=== PATIENT | male | born 1980 | race Caucasian/White ===

== ENCOUNTER 2016-05-06 10:21 | Emergency (ER) | payer SELFPAY ==
--- NOTE | 2016-05-06 13:25 | ED NURSING NOTES ---
Clinical Report - Nurses [facility] [address] [place] [address] 05/06/2016 10:25 Patient: KALEY FRANK IV TRIAGE Triage time 10:43. Chief Complaint: ABDOMINAL PAIN, NAUSEA and VOMITING and (Started yesterday after eating at [employer].). --10:54 Violeta Connolly R.N. Triage time 11:00 May 06 2016. Acuity: LEVEL 3. Chief Complaint: ABDOMINAL PAIN and DIARRHEA. SUZETTE COMA SCORE: [place] Coma Scale: 15- eyes open spontaneously (4); best verbal response- oriented x 4 (5); best motor response- obeys commands (6). --11:23 Carloz Gonzalez R.N. 11:13 05/06/16. BP: 106/85. HR: 100. RR: 18. O2 saturation: 99%. Temp: 98.2 F. Pain level now 12/04. --11:23 Carloz Gonzalez R.N. Weight: 97.5 kg stated. Height/Length: 75 inches Per Patient. BMI: 26.9. --11:21 Carloz Gonzalez R.N. Medications Humira Pen Subcutaneous. --11:19 Carloz Gonzalez R.N. METHATREXATE. --11:20 Carloz Gonzalez R.N. Hydrocodone-Acetaminophen Oral. --11:20 Carloz Gonzalez R.N. Medication/allergy information source: the patient. --10:54 Violeta Connolly R.N. Allergies morphine. --11:19 Carloz Gonzalez R.N. History Arrived by private vehicle. Historian: patient. Primary physician (judie Allen's specialist). This started yesterday. He has had nausea. He has had vomiting (forched self to vomit.). ( Patient reluctant and very slow in answering triage questions. I asked the patient to let me get his blood pressure and the rest of the vs. Patient loudly stated, "I want someone else to talk to". "Maybe, I'll just leave". Patient took off gown and started to get up, throwing the gown on the bed. PATRICK Carty walked in and took over the care of the patient.). Treatment ENGINE SPECIALIST: None. --10:54 Violeta Connolly R.N. Arrived by private vehicle. Historian: patient. Accompanied by friend. This started yesterday. He has had diarrhea and abdominal pain. No nausea, vomiting, constipation or fever. Last oral intake by patient was yesterday. PAST MEDICAL HX: No history of diabetes mellitus. No history of gastroesophageal reflux disease, peptic ulcer disease or gallstones. Immunizations: up-to-date. SOCIAL HX: Never smoker. Alcohol use; consumes two beers a week. No drug use. No recent travel. No infectious disease exposure. No known contact with a sick individual. SELF HARM ASSESSMENT: A self harm assessment was performed. The patient answered "no" to the question "Have you recently felt down, depressed, or hopeless?" and "Do you have thoughts of harming or killing yourself?". FALL RISK ASSESSMENT: Fall risk assessment completed. No fall risk identified. NUTRITIONAL RISK ASSESSMENT: The nutritional risk assessment revealed no deficiencies. FUNCTIONAL ASSESSMENT: Functional assessment: no impairments noted. LEARNING NEEDS ASSESSMENT: The learning needs assessment revealed no barriers. ABUSE ASSESSMENT: Abuse assessment: (yes) The patient was asked "Do you feel safe in your home?". SKIN INTEGRITY ASSESSMENT: Skin integrity risk assessment completed. No skin integrity risk identified. --11:23 Carloz Gonzalez R.N. PROBLEMS: Chron's . --10:46 Violeta Connolly R.N. ADDITIONAL SURGERIES: Bowel Surgery. Iliostomy . --10:46 Violeta Connolly R.N. Interventions ID and allergy band on patient. --11:23 Carloz Gonzalez R.N. PHYSICAL ASSESSMENT Ambulatory to room. ( States muscles are jasmin and it is very painful.). GENERAL / NEURO / PSYCH: Alert. Oriented X 4. Appears in pain, anxious and in distress. HEENT: Mucous membranes are pink. RESPIRATORY: Respirations not labored. Breath sounds within normal limits. CVS: Normal sinus rhythm noted. Capillary refill less than 2 seconds. GI / : The patient has diarrhea. No nausea noted. Normal genitalia. SKIN: Skin is warm and dry. --11:24 Carloz Gonzalez R.N. NURSING PROGRESS NOTES The plan of care for this patient has been created. Pulse oximeter and NIBP monitor placed on patient. Patient gowned. Head of bed elevated (45). Reassurance given. Call light placed in reach. Side rails up x 1. Bed placed in lowest position. Brakes of bed on. --11:24 Carloz Gonzalez R.N. 11:10 05/06/2016 Site #1 started via IV in the right antecubital space with an 20g angiocath, with aseptic technique and good blood return; one attempt. Blood drawn: rainbow set and cultures x2. Labeled in the presence of the patient and sent to the lab. Saline lock flushed with 10 mL saline. --11:35 Carloz Gonzalez R.N. 11:35 05/06/2016 Started bag #1 1000 mL IV Fluids IV NS (Saline); at 1000 mL/hr over 1 hour(s) via site #1 --11:35 Carloz Gonzalez R.N. 12:18 05/06/2016 IV Fluids IV NS Discontinued: bag #1 infused. Total amount infused: 1000 mL. IV patency established. IV site checked: no pain, redness, or swelling. IV flushed thoroughly. --12:18 Carloz Gonzalez R.N. 13:18 05/06/2016 Site #1 removed upon discharge. Catheter intact. Pressure dressing applied. --13:18 Amy Thornton. DISPOSITION / DISCHARGE Departure time: 13:45 May 06 2016. Condition at departure: improved. No learning barriers present. Discharge instructions provided and reviewed with the patient. Reviewed warnings. Reviewed medication(s). Treatments reviewed. Reviewed referrals. Patient verbalized understanding. Written instructions provided in Namibian. The patient was discharged home and accompanied by cork insulator. He left the Emergency Department ambulatory and via private vehicle. Break And Load Operator driving. --13:55 Carloz Gonzalez R.N. 13:54 05/06/16. BP: 105/78. HR: 100. RR: 18. O2 saturation: 98%. Temp: 98.4 F. Pain level now 0/10. --13:55 Carloz Gonzalez R.N. Locked/Released at 05/06/2016 19:19 by Carloz Gonzalez R.N.
--- NOTE | 2016-05-06 13:25 | ED ORDER SUMMARY ---
..... Patient: KALEY FRANK IV OrderSheet [facility] VisitID: [id number] [place] [address] 35y, M Registration Date/Time: 05/06/2016 ORDER SHEET Weight: 97.5 kg (stated) Allergies: morphine GENERAL ORDERS: CBC w Diff Urgent (:05/06/2016 Lcuien Navarro) (Ack 11:40 LTapper) (12:19 LWhalen R.N.) CMP Urgent (:05/06/2016 Lucien Navarro) (Ack 11:40 LTapper) (12:19 LWhalen R.N.) Amylase Urgent (:05/06/2016 Lucien Navarro) (Ack 11:40 LTapper) (12:19 LWhalen R.N.) Lipase Urgent (:05/06/2016 Lucien Navarro) (Ack 11:40 LTapper) (12:19 LWhalen R.N.) UA-Culture if indicated Urgent (:05/06/2016 Lucien Navarro) (Ack 11:40 LTapper) (12:19 LWhalen R.N.) CPK Urgent (:05/06/2016 Lucien Navarro) (Ack 11:40 LTapper) (12:19 LWhalen R.N.) MEDICATION ORDERS: IV FLUIDS: IV NS : initial bolus none -, then 1000 mL/hr for X1 (NOW) (:05/06/2016 Lucien Navarro) (11:35 LWhalen R.N.) ORDER SHEET NOTES: [Electronically signed by Carloz Gonzalez R.N. (19:19 05/06/2016)] [Electronically signed by Bert Donaldson Dr. (21:56 05/06/2016)] [Electronically locked/signed by Carloz Gonzalez R.N. (19:19 05/06/2016)]
--- NOTE | 2016-05-06 13:25 | ED CLINICAL REPORT ---
Clinical Report - Physicians/Mid Levels [facility] [address] [place] [address] 05/06/2016 10:25 Patient: KALEY FRANK IV Time Seen: 10:45; initial patient contact. Arrived- By private vehicle. Historian- patient. HISTORY OF PRESENT ILLNESS Chief Complaint: ABDOMINAL PAIN. At its maximum, severity described as moderate. When seen in the E.D., severity described as moderate. Modifying factors. Not worsened by anything. Not relieved by anything. It is described as cramping. No radiation. It is described as generalized in location. This started today and is still present. The patient has had nausea, vomiting and diarrhea. No recent travel. Similar symptoms previously: None. Recent medical care: Not recently seen/assessed. REVIEW OF SYSTEMS No constipation, black stools, hematemesis, pain with urination or urinary frequency. No bloody stools, fever or chills. muscle cramps. All systems otherwise negative, except as recorded above. PAST HISTORY Chron's . ADDITIONAL SURGERIES: Bowel Surgery. Iliostomy . SOCIAL HISTORY Never smoker. Occasional alcohol use. No drug use. ADDITIONAL NOTES The nursing notes have been reviewed with agreement regarding the chief complaint, PMH and patient medications and allergies. PHYSICAL EXAM Vital Signs: 05/06/2016 11:13 BP: 106/85. HR: 100. RR: 18. O2 saturation: 99%. Temp: 98.2 F. Have been reviewed as normal. Appearance: Alert. Oriented X3. Appears to be in pain. Eyes: Eyes normal inspection. ENT: Dry mucous membranes present. CVS: Normal heart rate and rhythm. Heart sounds normal. Respiratory: No respiratory distress. Breath sounds normal. Abdomen: Soft and nontender. Bowel sounds normal. (Nl appearing ileostomy). Skin: Skin warm and dry. Normal skin color. No rash. Extremities: No calf tenderness. No lower extremity edema. Neuro: Oriented X 3. LABS, X-RAYS, AND EKG Laboratory Tests: CBC w Diff: (JESSENIA: 05/06/2016 11:00) ( MsgRcvd 05/06/2016 11:41) Final results Test Result Flag Units (Reference) WHITE BLOOD COUNT 12.2 H K/uL (4.5-11.5) RED BLOOD COUNT 5.90 M/uL (4.50-5.90) HEMOGLOBIN 18.7 H gm/dL (13.5-17.5) HEMATOCRIT 54.6 H % (41.0-53.0) MEAN CELL VOLUME 93 fL (80-100) MEAN CORPUSCULAR HGB 32 pg (26-34) MEAN CORPUSCULAR HGB CONC 34 g/dL (31-37) RED CELL DISTRIBUTION WIDTH 12.6 % (11.6-14.8) PLATELET COUNT 307 K/uL (150-400) NEUTROPHIL % 70.7 % (50-75) LYMPH % 17.4 L % (25-40) MONO % 9.7 % (3-14) EOSINOPHIL % 1.7 % (0-4) BASOPHIL % 0.5 % (0-2) CMP: (JESSENIA: 05/06/2016 11:00) ( MsgRcvd 05/06/2016 12:10) Final results Test Result Flag Units (Reference) GLUCOSE 102 mg/dL (70-110) BUN 26 H mg/dL (7-18) CREATININE 1.8 H mg/dL (0.6-1.3) Estimated GFR 45.35 mL/min Estimated GFR- 54.96 mL/min Note: Persistent reduction over 3 months in eGFR<60 mL/min/1.73 m2 defines CKD. Patients with eGFR values>=60 mL/min/1.73 m2 may also have CKD if evidence ofpersistent proteinuria. Additional information may be foundat www.kidney.org. SODIUM 132 L mmol/L (136-145) POTASSIUM 4.5 mmol/L (3.5-5.1) CHLORIDE 95 L mmol/L (98-107) CARBON DIOXIDE 21 mmol/L (21-32) CALCIUM 10.2 H mg/dL (8.5-10.1) TOTAL PROTEIN 10.5 H g/dL (6.4-8.2) ALBUMIN 5.5 H g/dL (3.3-5.0) BILIRUBIN, TOTAL 5.1 H mg/dL (0.0-1.0) ALKALINE PHOSPHATASE 96 U/L (46-116) AST (SGOT) 43 H U/L (15-37) ALT (SGPT) 70 U/L (12-78) LIPASE 159 U/L (73-393) AMYLASE 63 U/L (25-115) CPK 315 H U/L (24-260) CK-MB 2.2 ng/mL (0.5-3.2) %CKMB 0.7 % (0.0-4.0) . PROGRESS AND PROCEDURES Course of Care: 13:17 05/06/16. Pt feeling markedly better after 1 L NS. Offered a 2nd liter, pt requesting D/C. Disposition: Discharged home in good and improved condition. Condition: good. CLINICAL IMPRESSION Myalgias Moderate dehydration Acute renal insufficiency. Acute viral gastroenteritis. INSTRUCTIONS Drink plenty of fluids. Your Current Medications: CONTINUE TAKING THE FOLLOWING MEDICATIONS: Humira Pen Subcutaneous. Hydrocodone-Acetaminophen Oral. METHATREXATE*. Follow-up: Screening today revealed the patient's blood pressure to be in the normal range. Follow-up with: [facility], , , [address], , [place], [id number] Follow up in about three days. Call for an appointment. (Electronically signed by Bert Donaldson Dr. 05/06/2016 21:56)
--- NOTE | 2016-05-06 13:25 | ED ORDER SUMMARY ---
..... Patient: KALEY FRANK IV OrderSheet VisitID: [id number] [place] [address] 35y, M Registration Date/Time: 05/06/2016 ORDER SHEET Weight: 97.5 kg (stated) Allergies: morphine GENERAL ORDERS: CBC w Diff Urgent (:05/06/2016 Lucien Navarro) (Ack 11:40 LTapper) (12:19 LWhalen R.N.) CMP Urgent (:05/06/2016 Lucien Navarro) (Ack 11:40 LTapper) (12:19 LWhalen R.N.) Amylase Urgent (:05/06/2016 Lucien Navarro) (Ack 11:40 LTapper) (12:19 LWhalen R.N.) Lipase Urgent (:05/06/2016 Lucien Navarro) (Ack 11:40 LTapper) (12:19 LWhalen R.N.) UA-Culture if indicated Urgent (:05/06/2016 Lucien Navarro) (Ack 11:40 LTapper) (12:19 LWhalen R.N.) CPK Urgent (:05/06/2016 Lucien Navarro) (Ack 11:40 LTapper) (12:19 LWhalen R.N.) MEDICATION ORDERS: IV FLUIDS: IV NS : initial bolus none -, then 1000 mL/hr for X1 (NOW) (:05/06/2016 Lucien Navarro) (11:35 LWhalen R.N.) ORDER SHEET NOTES: [Electronically signed by Carloz Gonzalez R.N. (19:19 05/06/2016)] [Electronically signed by Bert Donaldson Dr. (21:56 05/06/2016)] [Electronically locked/signed by Carloz Gonzalez R.N. (19:19 05/06/2016)]
--- NOTE | 2016-05-06 13:25 | ED NURSING NOTES ---
Clinical Report - Nurses [facility] [address] [place] [address] 05/06/2016 10:25 Patient: KALEY FRANK IV TRIAGE Triage time 10:43. Chief Complaint: ABDOMINAL PAIN, NAUSEA and VOMITING and (Started yesterday after eating at [employer].). --10:54 Violeta Connolly R.N. Triage time 11:00 May 06 2016. Acuity: LEVEL 3. Chief Complaint: ABDOMINAL PAIN and DIARRHEA. SUZETTE COMA SCORE: [place] Coma Scale: 15- eyes open spontaneously (4); best verbal response- oriented x 4 (5); best motor response- obeys commands (6). --11:23 Carloz Gonzalez R.N. 11:13 05/06/16. BP: 106/85. HR: 100. RR: 18. O2 saturation: 99%. Temp: 98.2 F. Pain level now 12/04. --11:23 Carloz Gonzalez R.N. Weight: 97.5 kg stated. Height/Length: 75 inches Per Patient. BMI: 26.9. --11:21 Carloz Gonzalez R.N. Medications Humira Pen Subcutaneous. --11:19 Carloz Gonzalez R.N. METHATREXATE. --11:20 Carloz Gonzalez R.N. Hydrocodone-Acetaminophen Oral. --11:20 Carloz Gonzalez R.N. Medication/allergy information source: the patient. --10:54 Violeta Connolly R.N. Allergies morphine. --11:19 Carloz Gonzalez R.N. History Arrived by private vehicle. Historian: patient. Primary physician (judie Allen's specialist). This started yesterday. He has had nausea. He has had vomiting (forched self to vomit.). ( Patient reluctant and very slow in answering triage questions. I asked the patient to let me get his blood pressure and the rest of the vs. Patient loudly stated, "I want someone else to talk to". "Maybe, I'll just leave". Patient took off gown and started to get up, throwing the gown on the bed. PATRICK Carty walked in and took over the care of the patient.). Treatment PHARMACY SALES REPRESENTATIVE: None. --10:54 Violeta Connolly R.N. Arrived by private vehicle. Historian: patient. Accompanied by friend. This started yesterday. He has had diarrhea and abdominal pain. No nausea, vomiting, constipation or fever. Last oral intake by patient was yesterday. PAST MEDICAL HX: No history of diabetes mellitus. No history of gastroesophageal reflux disease, peptic ulcer disease or gallstones. Immunizations: up-to-date. SOCIAL HX: Never smoker. Alcohol use; consumes two beers a week. No drug use. No recent travel. No infectious disease exposure. No known contact with a sick individual. SELF HARM ASSESSMENT: A self harm assessment was performed. The patient answered "no" to the question "Have you recently felt down, depressed, or hopeless?" and "Do you have thoughts of harming or killing yourself?". FALL RISK ASSESSMENT: Fall risk assessment completed. No fall risk identified. NUTRITIONAL RISK ASSESSMENT: The nutritional risk assessment revealed no deficiencies. FUNCTIONAL ASSESSMENT: Functional assessment: no impairments noted. LEARNING NEEDS ASSESSMENT: The learning needs assessment revealed no barriers. ABUSE ASSESSMENT: Abuse assessment: (yes) The patient was asked "Do you feel safe in your home?". SKIN INTEGRITY ASSESSMENT: Skin integrity risk assessment completed. No skin integrity risk identified. --11:23 Carloz Gonzalez R.N. PROBLEMS: Chron's . --10:46 Violeta Connolly R.N. ADDITIONAL SURGERIES: Bowel Surgery. Iliostomy . --10:46 Violeta Connolly R.N. Interventions ID and allergy band on patient. --11:23 Carloz Gonzalez R.N. PHYSICAL ASSESSMENT Ambulatory to room. ( States muscles are jasmin and it is very painful.). GENERAL / NEURO / PSYCH: Alert. Oriented X 4. Appears in pain, anxious and in distress. HEENT: Mucous membranes are pink. RESPIRATORY: Respirations not labored. Breath sounds within normal limits. CVS: Normal sinus rhythm noted. Capillary refill less than 2 seconds. GI / : The patient has diarrhea. No nausea noted. Normal genitalia. SKIN: Skin is warm and dry. --11:24 Carloz Gonzalez R.N. NURSING PROGRESS NOTES The plan of care for this patient has been created. Pulse oximeter and NIBP monitor placed on patient. Patient gowned. Head of bed elevated (45). Reassurance given. Call light placed in reach. Side rails up x 1. Bed placed in lowest position. Brakes of bed on. --11:24 Carloz Gonzalez R.N. 11:10 05/06/2016 Site #1 started via IV in the right antecubital space with an 20g angiocath, with aseptic technique and good blood return; one attempt. Blood drawn: rainbow set and cultures x2. Labeled in the presence of the patient and sent to the lab. Saline lock flushed with 10 mL saline. --11:35 Carloz Gonzalez R.N. 11:35 05/06/2016 Started bag #1 1000 mL IV Fluids IV NS (Saline); at 1000 mL/hr over 1 hour(s) via site #1 --11:35 Carloz Gonzalez R.N. 12:18 05/06/2016 IV Fluids IV NS Discontinued: bag #1 infused. Total amount infused: 1000 mL. IV patency established. IV site checked: no pain, redness, or swelling. IV flushed thoroughly. --12:18 Carloz Gonzalez R.N. 13:18 05/06/2016 Site #1 removed upon discharge. Catheter intact. Pressure dressing applied. --13:18 Amy Thornton. DISPOSITION / DISCHARGE Departure time: 13:45 May 06 2016. Condition at departure: improved. No learning barriers present. Discharge instructions provided and reviewed with the patient. Reviewed warnings. Reviewed medication(s). Treatments reviewed. Reviewed referrals. Patient verbalized understanding. Written instructions provided in Guamanian. The patient was discharged home and accompanied by felled seam operator chainstitch. He left the Emergency Department ambulatory and via private vehicle. Data Governance Analyst driving. --13:55 Carloz Gonzalez R.N. 13:54 05/06/16. BP: 105/78. HR: 100. RR: 18. O2 saturation: 98%. Temp: 98.4 F. Pain level now 0/10. --13:55 Carloz Gonzalez R.N. Locked/Released at 05/06/2016 19:19 by Carloz Gonzalez R.N.
--- NOTE | 2016-05-06 13:25 | ED CLINICAL REPORT ---
Clinical Report - Physicians/Mid Levels [facility] [address] [place] [address] 05/06/2016 10:25 Patient: KALEY FRANK IV Time Seen: 10:45; initial patient contact. Arrived- By private vehicle. Historian- patient. HISTORY OF PRESENT ILLNESS Chief Complaint: ABDOMINAL PAIN. At its maximum, severity described as moderate. When seen in the E.D., severity described as moderate. Modifying factors. Not worsened by anything. Not relieved by anything. It is described as cramping. No radiation. It is described as generalized in location. This started today and is still present. The patient has had nausea, vomiting and diarrhea. No recent travel. Similar symptoms previously: None. Recent medical care: Not recently seen/assessed. REVIEW OF SYSTEMS No constipation, black stools, hematemesis, pain with urination or urinary frequency. No bloody stools, fever or chills. muscle cramps. All systems otherwise negative, except as recorded above. PAST HISTORY Chron's . ADDITIONAL SURGERIES: Bowel Surgery. Iliostomy . SOCIAL HISTORY Never smoker. Occasional alcohol use. No drug use. ADDITIONAL NOTES The nursing notes have been reviewed with agreement regarding the chief complaint, PMH and patient medications and allergies. PHYSICAL EXAM Vital Signs: 05/06/2016 11:13 BP: 106/85. HR: 100. RR: 18. O2 saturation: 99%. Temp: 98.2 F. Have been reviewed as normal. Appearance: Alert. Oriented X3. Appears to be in pain. Eyes: Eyes normal inspection. ENT: Dry mucous membranes present. CVS: Normal heart rate and rhythm. Heart sounds normal. Respiratory: No respiratory distress. Breath sounds normal. Abdomen: Soft and nontender. Bowel sounds normal. (Nl appearing ileostomy). Skin: Skin warm and dry. Normal skin color. No rash. Extremities: No calf tenderness. No lower extremity edema. Neuro: Oriented X 3. LABS, X-RAYS, AND EKG Laboratory Tests: CBC w Diff: (JESSENIA: 05/06/2016 11:00) ( MsgRcvd 05/06/2016 11:41) Final results Test Result Flag Units (Reference) WHITE BLOOD COUNT 12.2 H K/uL (4.5-11.5) RED BLOOD COUNT 5.90 M/uL (4.50-5.90) HEMOGLOBIN 18.7 H gm/dL (13.5-17.5) HEMATOCRIT 54.6 H % (41.0-53.0) MEAN CELL VOLUME 93 fL (80-100) MEAN CORPUSCULAR HGB 32 pg (26-34) MEAN CORPUSCULAR HGB CONC 34 g/dL (31-37) RED CELL DISTRIBUTION WIDTH 12.6 % (11.6-14.8) PLATELET COUNT 307 K/uL (150-400) NEUTROPHIL % 70.7 % (50-75) LYMPH % 17.4 L % (25-40) MONO % 9.7 % (3-14) EOSINOPHIL % 1.7 % (0-4) BASOPHIL % 0.5 % (0-2) CMP: (JESSENIA: 05/06/2016 11:00) ( MsgRcvd 05/06/2016 12:10) Final results Test Result Flag Units (Reference) GLUCOSE 102 mg/dL (70-110) BUN 26 H mg/dL (7-18) CREATININE 1.8 H mg/dL (0.6-1.3) Estimated GFR 45.35 mL/min Estimated GFR- 54.96 mL/min Note: Persistent reduction over 3 months in eGFR<60 mL/min/1.73 m2 defines CKD. Patients with eGFR values>=60 mL/min/1.73 m2 may also have CKD if evidence ofpersistent proteinuria. Additional information may be foundat www.kidney.org. SODIUM 132 L mmol/L (136-145) POTASSIUM 4.5 mmol/L (3.5-5.1) CHLORIDE 95 L mmol/L (98-107) CARBON DIOXIDE 21 mmol/L (21-32) CALCIUM 10.2 H mg/dL (8.5-10.1) TOTAL PROTEIN 10.5 H g/dL (6.4-8.2) ALBUMIN 5.5 H g/dL (3.3-5.0) BILIRUBIN, TOTAL 5.1 H mg/dL (0.0-1.0) ALKALINE PHOSPHATASE 96 U/L (46-116) AST (SGOT) 43 H U/L (15-37) ALT (SGPT) 70 U/L (12-78) LIPASE 159 U/L (73-393) AMYLASE 63 U/L (25-115) CPK 315 H U/L (24-260) CK-MB 2.2 ng/mL (0.5-3.2) %CKMB 0.7 % (0.0-4.0) . PROGRESS AND PROCEDURES Course of Care: 13:17 05/06/16. Pt feeling markedly better after 1 L NS. Offered a 2nd liter, pt requesting D/C. Disposition: Discharged home in good and improved condition. Condition: good. CLINICAL IMPRESSION Myalgias Moderate dehydration Acute renal insufficiency. Acute viral gastroenteritis. INSTRUCTIONS Drink plenty of fluids. Your Current Medications: CONTINUE TAKING THE FOLLOWING MEDICATIONS: Humira Pen Subcutaneous. Hydrocodone-Acetaminophen Oral. METHATREXATE*. Follow-up: Screening today revealed the patient's blood pressure to be in the normal range. Follow-up with: [facility], , , [address], , [place], [id number] Follow up in about three days. Call for an appointment. (Electronically signed by Bert Donaldson Dr. 05/06/2016 21:56)
--- NOTE | 2016-05-06 21:56 | ED MAR SUMMARY ---
..... Medication Administration Record [facility] [address] [place] [address] Patient: KALEY FRANK Visit ID: [id number] 35y, M Weight: 97.5 kg Height/Length: 75 in BMI: 26.9 ALLERGIES: morphine Start 11:35 05/06/2016 Carloz Gonzalez RAloN., Stop 12:18 05/06/2016 Carloz Gonzalez RAloN. Medication Administered: IV NS (SALINE), Dose: IV Fluids over 1 hour(s), Rate: 1000 mL/hr, Dispensed: 1000 mL bag, Site: #1 right AC. Medication Ordered: IV NS : initial bolus none -, then 1000 mL/hr for X1 (NOW).
--- NOTE | 2016-05-06 21:56 | ED MED RECONCILIATION SUMMARY ---
Patient: KALEY FRANK IV Medication Reconciliation Report [facility] VisitID: [id number] [address] [place] [address] 35y, M Registration Date/Time: 05/06/2016 Weight: 97.5 kg Height/Length: 75 in. BMI: 26.9 ALLERGIES: morphine The patient's Home Medications are listed below: CONTINUE TAKING THE FOLLOWING MEDICATIONS: Humira Pen Subcutaneous Hydrocodone-Acetaminophen Oral METHATREXATE The source(s) of the original Home Medication information: patient The following Medications were given to the patient in the Emergency Department: IV NS IV Fluids bolus 0, then 1000 mL/hr, administered: 05/06/2016 11:35:00 AM The following Medications were prescribed to the patient: None.
--- NOTE | 2016-05-06 21:56 | ED DISCHARGE INSTRUCTIONS ---
Patient: KALEY FRANK IV General Instructions [facility] VisitID: [id number] [address] [place] [address] 35y, M Registration Date/Time: 05/06/2016 Myalgias Moderate dehydration Acute renal insufficiency. Acute viral gastroenteritis. INSTRUCTIONS Drink plenty of fluids. Your Current Medications: CONTINUE TAKING THE FOLLOWING MEDICATIONS: Humira Pen Subcutaneous. Hydrocodone-Acetaminophen Oral. METHATREXATE*. Follow-up: Screening today revealed the patient's blood pressure to be in the normal range. Follow-up with: [facility], , , [address], , [place], [id number] Follow up in about three days. Call for an appointment. ADDITIONAL INFORMATION Viral Gastroenteritis (6Yr-Adult) Gastroenteritis is another name for thestomach flu.It is most often caused by a virus that affects the stomach and intestinal tract. Symptoms include stomach cramping and fever, vomiting and/or diarrhea, and can last from 2 to 7 days. The danger from repeated vomiting or diarrhea is dehydration. This is the loss of too much water and minerals from the body. When this occurs, body fluids must be replaced. Antibiotics are not effective for this illness, but simple home treatment will be helpful. Home Care If symptoms are severe, rest at home for the next 24 hours. Avoid tobacco, caffeine, and alcohol use, which can worsen symptoms. Acetaminophen (Tylenol) or ibuprofen (Motrin, Advil) may be usedfor fever or pain unless another medication was prescribed. NOTE: If you have chronic liver or kidney disease or ever had a stomach ulcer or GI bleeding, talk with your doctor before using these medicines. Aspirin should never be used in anyone under 18 years of age who is ill with a fever. It may cause severe liver damage. If medicines for diarrhea or vomiting were prescribed, be sure they are takenonly as directed. If vomiting, drink small amounts of clear fluids (such as water, sports drinks, clear sodas) at frequent intervals to prevent dehydration. Start with 1 to 2 tablespoons every 10 minutes. Once vomiting stops, follow these guidelines: During The First 12 To 24 Hours follow the diet below: Beverages: Sport drinks like Gatorade, soft drinks without caffeine; asia ann, mineral water (plain or flavored), decaffeinated tea and coffee. Soups: Clear broth, consomm and bouillon Desserts: Plain gelatin (Jell-O), Popsicles and fruit juice bars. During The Next 24 Hours you may add the following to the above: Hot cereal, plain toast, bread, rolls, crackers Plain noodles, rice, mashed potatoes, chicken noodle or rice soup Unsweetened canned fruit (avoid pineapple), bananas Limit fat intake to less than 15 grams per day by avoiding margarine, butter, oils, mayonnaise, sauces, gravies, fried foods, peanut butter, meat, poultry, and fish. Limit fiber; avoid raw or cooked vegetables, fresh fruits (except bananas), and bran cereals. Limit caffeine and chocolate. Do not use spices or seasonings except salt. During The Next 24 Hours The patient can gradually resume a normal diet as symptoms lessen. Preventing Spread Hand washing with soap and water is the best way to prevent the spread of viruses. Caregivers should wash their hands before andafter touching the sick person. The sick person, as well as everyone in the family,should wash their hands after using the toilet and before meals. Clean the toilet after each use. People with diarrhea should not prepare food for others. If you are preparing your own foods, wash your hands before and after. Follow Up with your doctor as advised. Call your doctor if you are not improving over the next 2 to 3 days. If a stool (diarrhea) sample was taken, you may call in 2 days (or as directed) for the results. Get Prompt Medical Attention if any of the following occur: Increasing abdominal pain Continued vomiting (unable to keep liquids down) Frequent diarrhea (more than 5 times a day) Blood in vomit or stool (black or red color) Dark urine, reduced urine output, or extreme thirst Weakness, dizziness, fainting Drowsiness, confusion, stiff neck, or seizure Fever of 100.4F (38C) oral or higher, not better with fever medication New rash Myalgias Myalgia is the term for muscle aching, sometimes described by patients as "aching all over". It is not a disease but a symptom of an illness, such as the cold or flu. Any illness with a high fever can cause myalgias. Certain chronic or recurring medical illnesses can cause myalgias (such as Lupus and other collagen-vascular diseases). These chronic illnesses usually cause other serious symptoms in addition to the myalgias. Home Care: 1) Rest until you are feeling better. 2) You may use acetaminophen (Tylenol) or ibuprofen (Motrin, Advil) to control pain, unless another medicine was prescribed. [ NOTE : If you have chronic liver or kidney disease or ever had a stomach ulcer or GI bleeding, talk with your doctor before using these medicines.] 3) If you have a high fever, drink plenty of fluids to prevent dehydration (water, soft, drinks, juices, tea, soup, etc.). Follow Up with your doctor or as advised by our staff. If myalgia symptoms do not resolve in a few days or become recurrent, follow up with your doctor for further testing. Get Prompt Medical Attention if any of the following occur: Fever of 100.4F (38C) or higher, or as directed by your healthcare provider New joint pains New rash Severe headache, neck pain, drowsiness or confusion Dehydration (Adult) Dehydration occurs when your body loses too much fluid. This may be the result of vomiting a lot or from diarrhea,sweating a lot, or a high fever. It may also happen if you dont drink enough fluid when youre sick. Misuse of diuretics (water pills) can also be a cause. Symptoms include thirst and feeling dizzy, weak, fatigued, or very drowsy. The diet described below is usually enough to treat most cases. Sometimes you may needmedicine. Home Care Follow these guidelines for home care: Drink at least 12 8-ounce glasses of fluid every day to overcome the dehydration. Fluid may include water; orange juice; lemonade; apple, grape, and cranberry juice; clear fruit drinks; electrolyte replacement and sports drinks; and teas and coffee without caffeine. If you have been diagnosed with a kidney disease, ask your doctor how much and what types of fluids you should drink to prevent dehydration. If you have kidney disease, drinking too much fluid can cause it build up in the your body and be dangerous to your health. If you have fever, muscle aching, or headache from a viral syndrome, you may useacetaminophen or ibuprofen, unless another medicine was prescribed for this.If you have chronic liver or kidney disease or ever had a stomach ulcer or GI bleeding, talk with your doctor before using these medicines. Don't take aspirin if you are younger than 18 and are ill with a fever.Aspirin raises the chance forsevere liver injury. Follow-up care Follow up with your health care provider if you don't get better in the next 24 to 48 hours. When to seek medical care Get prompt medical attention if any of theseoccur: Continued vomiting (cant keep liquids down) Frequent diarrhea (more than 5 times a day); blood (red or black color) or mucus in diarrhea Blood in vomit or stool Swollen abdomen or increasing abdominal pain Weakness, dizziness, or fainting Unusually drowsy or confused Reduced urine output or extreme thirst Fever of 100.4 F (38 C) oral or higher that does not get better with fever medication Renal Insufficiency The role of the kidneys is to remove waste products and excess water from the body. When the kidneys do not function normally, waste products build up in the blood.The early stage of this process is called renal insufficiency . If renal insufficiency worsens it can lead to chronic renal failure. This allows excess water, waste and toxic substances to build up in the body. This can become a threat to life, requiring dialysis or a kidney transplant to stay alive. Diabetes is the leading causes of renal insufficiency. Other causes include high blood pressure, hardening of the arteries, lupus, inflammation of the blood vessels (vasculitis), prior viral and bacterial infections, and others. Certain [id number] pain medicines can cause renal failure when taken often over a long period of time. These include aspirin, ibuprofen (Advil, Motrin) and related anti-inflammatory medicines. Home Care: If you have diabetes, talk to your doctor about the quality of your blood sugar control.Ask about any changes needed to your diet or medicines. If you have high blood pressure: Take your blood pressure medicine. Take up a regular exercise program that you enjoy.Check with your doctor to be sure your planned exercise program is right for you. Reduce your salt (sodium) intake.Your doctor can tell you how much salt per day is safe for you. If you are overweight, talk to your doctor about a weight loss plan. If you smoke, you must quit.Smoking worsens kidney disease.Talk to your doctor about ways to help you quit.For more information, visit the following links: www.smokefree.gov/pubs/clearing_the_air.pdf www.smokefree.gov www.[employer].com Talk to your doctor about any dietary restrictions advised. In general, it is advisable to limit protein, salt, potassium and phosphorus.Avoid excess fluids. Do not add salt at the table and avoid salty foods.A calcium supplement may be prescribed to protect your bones from osteoporosis. Avoid the following over the counter medicines, or consult your doctor before using: Aspirin and anti-inflammatory drugs such as ibuprofen (Advil, Motrin), naprosyn (Aleve); [Short term use of acetaminophen (Tylenol) for fever or pain is okay.] Laxatives and antacids containing magnesium or aluminum (Mylanta, Maalox) Avoid Fleet or phosphosoda enemas which contain phosphorus Certain stomach acid-blocking medicine such as cimetidine (Tagamet), ranitidine (Zantac) Decongestants containing pseudoephedrine (such as some forms of Sudafed or Actifed) Herbal supplements Follow Up with your doctor or as advised by our staff. Contact one of the following for more information. [place] [phone] [phone] www.aakp.org National [employer] Foundation www.kidney.org Return Promptly or contact your doctor if any of the following occurs: Nausea or vomiting Severe weakness, dizziness, fainting, drowsiness or confusion Chest pain or shortness of breath Unexpected weight gain or swelling in the legs, ankles or around the eyes Heart beating fast, slow or irregularly Decrease or loss in urine output You have been given the following additional information: Gastroenteritis, Viral (6Y-Adult) Myalgias Dehydration (Adult) Renal Insufficiency (Electronically signed by Bert Donaldson Dr. 05/06/2016 21:56)
--- NOTE | 2016-05-06 21:56 | ED MED RECONCILIATION SUMMARY ---
Patient: KALEY FRANK IV Medication Reconciliation Report [facility] VisitID: [id number] [address] [place] [address] 35y, M Registration Date/Time: 05/06/2016 Weight: 97.5 kg Height/Length: 75 in. BMI: 26.9 ALLERGIES: morphine The patient's Home Medications are listed below: CONTINUE TAKING THE FOLLOWING MEDICATIONS: Humira Pen Subcutaneous Hydrocodone-Acetaminophen Oral METHATREXATE The source(s) of the original Home Medication information: patient The following Medications were given to the patient in the Emergency Department: IV NS IV Fluids bolus 0, then 1000 mL/hr, administered: 05/06/2016 11:35:00 AM The following Medications were prescribed to the patient: None.
--- NOTE | 2016-05-06 21:56 | ED MAR SUMMARY ---
..... Medication Administration Record [facility] [address] [place] [address] Patient: KALEY FRANK Visit ID: [id number] 35y, M Weight: 97.5 kg Height/Length: 75 in BMI: 26.9 ALLERGIES: morphine Start 11:35 05/06/2016 Carloz Gonzalez RAloN., Stop 12:18 05/06/2016 Carloz Gonzalez RAloN. Medication Administered: IV NS (SALINE), Dose: IV Fluids over 1 hour(s), Rate: 1000 mL/hr, Dispensed: 1000 mL bag, Site: #1 right AC. Medication Ordered: IV NS : initial bolus none -, then 1000 mL/hr for X1 (NOW).
== END 2016-05-06 13:45 | disposition home or self-care (01) ==
LOC: ED SRH 10:21
DX: M79.1 Myalgia (principal); E86.0 Dehydration; N28.9 Disorder of kidney and ureter, unspecified; A08.4 Viral intestinal infection, unspecified; Z88.5 Allergy status to narcotic agent
CPT/HCPCS: 90100; 90617; 92235; 92530; 92610; 95059